=== PATIENT | male | born 1985 | race Two or more races ===

== ENCOUNTER 2016-10-04 16:57 | Emergency (ER) | payer OTHER ==
[2016-10-04 17:01] VITALS: BP 149/83
--- NOTE | 2016-10-04 17:31 | RAD ---
HISTORY: Hemoptysis COMPARISONS: December 13, 2014 VIEWS: 2: Frontal dual-energy and lateral views of the chest. FINDINGS: CARDIOMEDIASTINAL SILHOUETTE: The cardiomediastinal silhouette is normal. JOHN: The john are normal. PLEURA: The costophrenic angles are sharp. No pleural abnormalities are noted. LUNG PARENCHYMA: The lungs are clear. ABDOMEN: The upper abdomen is clear. There is no subphrenic gas. BONES AND SOFT TISSUES: No bone or soft tissue abnormalities are noted. OTHER: None. IMPRESSION: NO ACTIVE CARDIOPULMONARY DISEASE.
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
== END 2016-10-04 19:31 | disposition home or self-care (01) ==
LOC: ED 16:57
DX: J06.9 Acute upper respiratory infection, unspecified (principal); R05 Cough; J02.9 Acute pharyngitis, unspecified; Z87.891 Personal history of nicotine dependence
CPT/HCPCS: 71020; 87651; 99282

== ENCOUNTER 2016-11-26 12:41 | Emergency (ER) | payer OTHER ==
[2016-11-26] MEDS ORDERED: Ketorolac INJ* 60 MG/2 ML VIAL IM ONE (14:34)
--- NOTE | 2016-11-26 14:40 | UC ---
Lower Extremity/Ankle HPI - HPI Summary HPI Summary: 30 y/o male presents to the urgent care c/o B/L ankle pain since this morning. Pt reports his PCP is trying to r/o Rheumatoid arthritis. He has a Bone scan schedule this Friday11/29/[address] Rae. Pt states His pain is 7/10 and is sharp, specially with movement and radiates to both knees. Pt denies fever, SOB, chest pain, N/V/D, or urinary symptoms, numbness or tingling. Pt has not other complains. - History of Current Complaint Chief Complaint: UCLowerExtremity Stated Complaint: ANKLE PAIN Time Seen by Provider: 11/26/16 14:16 Hx Obtained From: Patient Onset/Duration: Gradual Onset, Lasting Hours, Still Present Severity Initially: Mild Severity Currently: Moderate Pain Intensity: 7 Pain Scale Used: 0-10 Numeric Aggravating Factor(s): Ambulation Alleviating Factor(s): Rest Able to Bear Weight: Yes - Risk Factors Gout Risk Factors: Negative DVT Risk Factors: Negative Septic Arthritis Risk Factor: Negative - Allergies/Home Medications Allergies/Adverse Reactions: Allergies Allergy/AdvReac Type Severity Reaction Status Date / Time Bee Venom Allergy Anaphylatic Verified 11/26/16 12:56 Shock Tomato Allergy Swelling Verified 11/26/16 12:56 Of Face,Lips,& Throat PMH/Surg Hx/FS Hx/Imm Hx Previously Healthy: Yes Respiratory History: Asthma Other History Of: Negative For: Anticoagulant Therapy - Surgical History Surgical History: Yes Surgery Procedure, Year, and Place: at age 4 had testicle surgery; there was excess fluid in one that made it bigger than the other. - Family History Known Family History: Positive: Diabetes, Other Negative: Cardiac Disease Family History: Grandmother hx of stomach CA, dicerticulitis - Social History Occupation: Employed Full-time Lives: With Family Alcohol Use: Occasionally Alcohol Amount: had two beers last night Substance Use Type: None Smoking Status (MU): Current Some Day Smoker Type: Cigarettes Amount Used/How Often: 1 ppd Length of Time of Smoking/Using Tobacco: QUIT 11 MONTHS AGO Have You Smoked in the Last Year: Yes Household Exposure Type: Cigarettes Review of Systems Constitutional: Negative Skin: Negative Eyes: Negative ENT: Negative Respiratory: Negative Cardiovascular: Negative Gastrointestinal: Negative Genitourinary: Negative Motor: Negative Neurovascular: Negative Musculoskeletal: Other: - B/L ankle pain Neurological: Negative Psychological: Negative All Other Systems Reviewed And Are Negative: Yes Physical Exam Triage Information Reviewed: Yes Appearance: Well-Appearing, No Pain Distress, Well-Nourished, Thin Vital Signs: Initial Vital Signs Temp 97.9 F 11/26/16 12:49 Pulse 85 11/26/16 12:49 Resp 18 11/26/16 12:49 BP 132/77 11/26/16 12:49 Pulse Ox 100 11/26/16 12:49 Vital Signs Reviewed: Yes Eye Exam: Normal Eyes: Positive: Conjunctiva Clear - PERRLA, EOMI, fundi grossly normal ENT Exam: Normal ENT: Positive: Normal ENT inspection, Hearing grossly normal, Pharynx normal, TMs normal Dental Exam: Normal Neck exam: Normal Neck: Positive: Supple, Nontender, No Lymphadenopathy Respiratory Exam: Normal Respiratory: Positive: Chest non-tender, Lungs clear, Normal breath sounds, No respiratory distress Cardiovascular Exam: Normal Cardiovascular: Positive: RRR, No Murmur, Pulses Normal, Brisk Capillary Refill Abdominal Exam: Normal Abdomen Description: Positive: Nontender, No Organomegaly, Soft. Negative: CVA Tenderness (R), CVA Tenderness (L) Bowel Sounds: Positive: Present Musculoskeletal Exam: Normal Musculoskeletal: Positive: Strength Intact, ROM Intact, No Edema, Other: - B/L ankle tenderness on both lateral aspect of malleoulus, no swelling or erythema observed. Decrease ROM due to pain. Positive sensation, pulses, capillary refill intact. Neurological Exam: Normal Lower Extremity Course/Dx - Course Course Of Treatment: 30 y/o male presents to the urgent care c/o B/L ankle pain since this morning. Pt reports his PCP is trying to r/o Rheumatoid arthritis. He has a Bone scan schedule this Friday11/29/[address] Rae. Pt states His pain is 7/10 and is sharp, specially with movement and radiates to both knees. Pt denies fever, SOB, chest pain, N/V/D, or urinary symptoms, numbness or tingling. PE abnormal findings:B/L ankle tenderness on both lateral aspect of malleoulus, no swelling or erythema observed. Decrease ROM due to pain. Positive sensation, pulses, capillary refill intact. Pt' PCP is trying to r/o RA. Pt with schedule appt this Friday w/ Assistant Financial Accountant with DR Rae. Pt given Toradol Im inj at the clinic by the nurse. Pt tolerated well medication and pain decreased. Pt Rx Naproxen PO f/u with Assistant Financial Accountant. Pt understood and agreed and left the clinic ambulating. Pt Rx - Differential Dx/Diagnosis Differential Diagnosis/HQI/PQRI: Arthritis, Bursitis, Gout, Septic Arthritis, Sprain, Tendonitis, Other - Rheumathoid arthritis Provider Diagnoses: 1- Bilateral ankle pain Discharge - Discharge Plan Condition: Stable Disposition: HOME Prescriptions: Naproxen TAB* [Naprosyn 250 mg TAB*] 500 mg PO Q8H PRN #20 tab PRN Reason: Pain Patient Education Materials: Rheumatoid Arthritis (ED) Forms: *Work Release Referrals: Krystian Carter MD [Primary Care Provider] - 1 Day Additional Instructions: Please take medications after meals as instructed to alleviate symptoms of pain. Please f/u with your PCP tomorrow if symptoms do not improve. F/u your schedule appt to r/o Rheumatoid arthritis w/ Dr Rae
[2016-11-26 14:55] VITALS: BP 124/76
== END 2016-11-26 15:09 | disposition home or self-care (01) ==
LOC: UCEAST 12:41
DX: M25.572 Pain in left ankle and joints of left foot (principal); M25.571 Pain in right ankle and joints of right foot; J45.909 Unspecified asthma, uncomplicated; Z91.030 Bee allergy status; Z72.0 Tobacco use
CPT/HCPCS: 96372; 99212; G0463; J1885

== ENCOUNTER 2017-05-30 10:08 | Emergency (ER) | payer MEDICAID, OTHER ==
[2017-05-30] MEDS ORDERED: Penicillin VK TAB* 250 MG PO ONE (12:37)
[2017-05-30] MEDS ORDERED: Ketorolac INJ* 30 MG/ML 1 ML VIAL IM ONE (12:37)
--- NOTE | 2017-05-30 12:40 | UC ---
Dental HPI - HPI Summary HPI Summary: tooth ache x 5 days worse x 2 days unable to sleep min relief with nsaid fever swelling right jaw no hx DM or heart murmur - History of Current Complaint Chief Complaint: UCDentalProblem Stated Complaint: DENTAL COMPLAINT Time Seen by Provider: 05/30/17 12:24 Hx Obtained From: Patient Onset/Duration: Gradual Onset, Lasting Days Severity: Severe Pain Intensity: 10 Pain Scale Used: 0-10 Numeric Aggravating Factor(s): Heat, Cold, Chewing Alleviating Factor(s): OTC Meds Related History: Previous Dental Care on Same Tooth, Swelling - Allergies/Home Medications Allergies/Adverse Reactions: Allergies Allergy/AdvReac Type Severity Reaction Status Date / Time Bee Venom Allergy Anaphylatic Verified 05/30/17 10:51 Shock Tomato Allergy Swelling Verified 05/30/17 10:51 Of Face,Lips,& Throat Home Medications: Home Medications Acetaminophen [Tylenol] 650 mg PO Q6HR PRN 05/30/17 [History Confirmed 05/30/17] Ibuprofen [Advil Migraine] 800 mg PO Q6HR PRN 05/30/17 [History Confirmed ] PMH/Surg Hx/FS Hx/Imm Hx Previously Healthy: Yes Other History Of: Negative For: Anticoagulant Therapy - Surgical History Surgical History: Yes Surgery Procedure, Year, and Place: at age 4 had testicle surgery; there was excess fluid in one that made it bigger than the other. - Family History Known Family History: Positive: Cardiac Disease, Hypertension, Diabetes, Other Family History: Grandmother hx of stomach CA, dicerticulitis - Social History Alcohol Use: Occasionally Alcohol Amount: had two beers last night Substance Use Type: None Smoking Status (MU): Current Some Day Smoker Type: Cigarettes Amount Used/How Often: 1 pack per week Length of Time of Smoking/Using Tobacco: QUIT 11 MONTHS AGO Have You Smoked in the Last Year: Yes Household Exposure Type: Cigarettes Review of Systems Constitutional: Fever Skin: Negative Eyes: Negative ENT: Negative Respiratory: Negative Cardiovascular: Negative Gastrointestinal: Negative Genitourinary: Negative Motor: Negative Neurovascular: Negative Musculoskeletal: Negative Neurological: Headache Psychological: Negative Is Patient Immunocompromised?: No All Other Systems Reviewed And Are Negative: Yes Physical Exam Triage Information Reviewed: Yes Appearance: Well-Appearing, No Pain Distress, Well-Nourished Vital Signs: Initial Vital Signs Temp 99.9 F 01/26/18 10:53 Pulse 93 05/30/17 10:53 Resp 18 05/30/17 10:53 BP 129/92 05/30/17 10:53 Pulse Ox 97 05/30/17 10:53 Vital Signs Reviewed: Yes Eyes: Positive: Conjunctiva Clear ENT: Positive: Hearing grossly normal Dental: Positive: Abscess @, Other: - abysmal dentition/many absent teeth Neck: Positive: Supple, Nontender, No Lymphadenopathy Respiratory: Positive: Lungs clear, Normal breath sounds, No respiratory distress, No accessory muscle use Cardiovascular: Positive: RRR, No Murmur Musculoskeletal: Positive: ROM Intact, No Edema Neurological: Positive: Alert Psychological Exam: Normal Skin Exam: Normal Dental Complaint Course/Dx - Differential Dx/Diagnosis Provider Diagnoses: dental abscess Discharge - Discharge Plan Condition: Stable Disposition: HOME Prescriptions: HYDROcodone/ACETAMIN 5-325 MG* [[place] 5-325 TAB*] 1 tab PO Q4H PRN #15 tab MDD 6 PRN Reason: Pain Ibuprofen TAB* [Motrin TAB*] 600 mg PO Q6H PRN #40 tab PRN Reason: Pain Penicillin VK 500 MG TAB(NF) [Penicillin VK 500 mg Tab] 500 mg PO QID #28 tab Patient Education Materials: Dental Abscess (ED) Forms: *Work Release Referrals: Krystian Carter MD [Primary Care Provider] - Additional Instructions: to ER for new or worsening symptoms recheck in 2-3 days if not better you need to get in to see a dentist to have your tooth addressed Images Head: 1 - tender/swollen Dental: 1 - abscess
[2017-05-30 13:16] VITALS: BP 148/75
== END 2017-05-30 13:10 | disposition home or self-care (01) ==
LOC: UCEAST 10:08
DX: K04.7 Periapical abscess without sinus (principal); Z91.030 Bee allergy status; Z87.891 Personal history of nicotine dependence
CPT/HCPCS: 96372; 99212; A9270-GY; G0463; J1885

== ENCOUNTER 2017-08-30 13:34 | Emergency (ER) | payer MEDICAID, OTHER ==
[2017-08-30 13:49] VITALS: BP 150/89
== END 2017-08-30 15:06 | disposition left against medical advice (07) ==
LOC: ED 13:34
DX: L91.8 Other hypertrophic disorders of the skin (principal); Z53.21 Procedure and treatment not carried out due to patient leaving prior to being seen by health care provider

== ENCOUNTER 2017-10-30 09:46 | Emergency (ER) | payer OTHER ==
--- OUTSIDE RECORDS SUMMARY | 2017-10-30 09:53 | XMS REPORT ---
:1985 External Reference #:[id number] Author Organization [employer] Address [address] [place] [address] [place] [address] Phone [phone] Care Team Providers Name Role Phone Krystian Carter MD Primary Care Physician Unavailable Payers Type Date Identification Numbers Payment Provider Subscriber Commercial Policy Number: [id number] Anthony Casey [employer] Group Number: [id number] [address] PayID: [id number] [place] [address] Problems Description No Information Family History Date Family Member(s) Problem(s) Comments General Diverticulitis Mother Diabetes Siblings 5 Social History Type Date Description Comments Marital Status Lives With Lives With Mother ETOH Use Rarely consumes alcohol Smoking Patient is a current smoker, smokes every day Recreational Drug Use Former Drug User Smoking Light tobacco smoker (10 or fewer cigarettes/day) Daily Caffeine Consumes on average 20oz of energy drinks per day Daily Caffeine Consumes on average 64oz of soda per day Exercise Type/Frequency Exercises sporadically Allergies, Adverse Reactions, Alerts Date Description Reaction Status Severity Comments 10/14/2017 NKDA active Medications Medication Date Status Form Strength Qnty SIG Indications Ordering Provider Tylenol 02/07/20 Active Tablets 325mg prn For Unknown 16 pain Flexeril 1020 Active Tablets 10mg 15tabs Three Unknown 16 Times Daily prn For Pain Motrin 20 Active Tablets 600mg 20tabs Q6H prn Unknown 16 For Pain Repack Vital Signs Date Vital Result Comment 10/14/2017 Height 65 inches 5'5" Weight 188.00 lb Heart Rate 90 /min BP Systolic Sitting 118 mmHg Lue regular cuff BP Diastolic Sitting 82 mmHg Lue regular cuff Respiratory Rate 16 /min O2 % BldC Oximetry 92 % BMI (Body Mass Index) 31.3 kg/m2 Neck Circumference in inches 15.5 Results Description No Information Procedures Description No Information Plan of Care 10/14/2017 - Linda Wallace, [id number] SnoringNew Orders:Sleep StudyFollow up:6 [id number] Other fatigue
[2017-10-30 09:57] VITALS: BP 137/89
--- NOTE | 2017-10-30 10:31 | UC ---
HPI Febrile Illness - HPI Summary HPI Summary: Patient is a 31-year-old male presenting to the with chief complaint of fevers, sweats, chills, sore throat, dysphagia, odynophagia, bilateral ear pain and productive cough. Denies any shortness of breath or chest pain. Symptoms have been present 3 days. He was seen at 5 start an told viral illness. Strep test negative at that time. He has been using Tylenol without relief. He has also endorsing some bilateral lower abdominal pain. He states he has not been eating or drinking due to sore throat. Denies any urinary symptoms, back pain. He endorses generalized fatigue and body aches as well. - History of Current Complaint Chief Complaint: UCGeneralIllness Time Seen by Provider: 10/30/17 10:06 Hx Obtained From: Patient Onset/Duration: Started Hours Ago Timing: Constant Initial Severity: Moderate Current Severity: Moderate Pain Intensity: 9 Pain Scale Used: 0-10 Numeric Alleviating Factors: Nothing Associated Signs and Symptoms: Cough, Diaphoresis, Joint Pain, Night Sweats, Sore Throat - Risk Factors Pseudomonas Risk Factors: Negative Serious Bacterial Infection Risk Factors: Negative - Allergy/Home Medications Allergies/Adverse Reactions: Allergies Allergy/AdvReac Type Severity Reaction Status Date / Time bee venom protein (honey bee) Allergy Severe Anaphylatic Verified 08/30/17 13:50 Shock tomato Allergy Severe Eyes Verified 08/30/17 13:50 Itchy/Swollen/Red/Watery PMH/Surg Hx/FS Hx/Imm Hx Previously Healthy: Yes Other History Of: Negative For: Anticoagulant Therapy - Surgical History Surgical History: Yes Surgery Procedure, Year, and Place: at age 4 had testicle surgery; there was excess fluid in one that made it bigger than the other. - Family History Known Family History: Positive: Cardiac Disease, Hypertension, Diabetes, Other Family History: Grandmother hx of stomach CA, dicerticulitis - Social History Occupation: Employed Full-time Lives: With Family Alcohol Use: Occasionally Alcohol Amount: had two beers last night Substance Use Type: None Smoking Status (MU): Current Some Day Smoker Type: Cigarettes Amount Used/How Often: 1 pack per week Length of Time of Smoking/Using Tobacco: QUIT 11 MONTHS AGO Have You Smoked in the Last Year: Yes Household Exposure Type: Cigarettes Review of Systems Constitutional: Fever, Chills, Fatigue Skin: Negative ENT: Sore Throat, Ear Ache, Nasal Discharge, Sinus Congestion, Sinus Pain/ Tenderness Respiratory: Cough Cardiovascular: Negative Gastrointestinal: Abdominal Pain - bilateral lower abd pain Motor: Negative Neurovascular: Negative Musculoskeletal: Arthralgia Neurological: Negative, Headache Is Patient Immunocompromised?: No All Other Systems Reviewed And Are Negative: Yes Physical Exam Triage Information Reviewed: Yes Appearance: Well-Nourished, Ill-Appearing Vital Signs: Initial Vital Signs Temp 98.8 F 10/30/17 09:49 Pulse 106 10/30/17 09:49 Resp 16 10/30/17 09:49 BP 137/89 10/30/17 09:49 Pulse Ox 100 10/30/17 09:49 Vital Signs Reviewed: Yes Eye Exam: Normal Eyes: Positive: Conjunctiva Clear ENT: Positive: Pharyngeal erythema, Nasal congestion, Nasal drainage, TMs normal , Tonsillar swelling, Hoarse voice, Sinus tenderness Neck exam: Normal Neck: Positive: Supple Respiratory Exam: Normal Respiratory: Positive: Chest non-tender, Lungs clear Cardiovascular Exam: Normal Cardiovascular: Positive: RRR Musculoskeletal Exam: Normal Musculoskeletal: Positive: Strength Intact Neurological Exam: Normal Psychological Exam: Normal Psychological: Positive: Normal Response To Family Skin Exam: Normal Course/Dx - Course Course Of Treatment: During the course treatment, the patient's evaluated for generalized body aches, fevers, sweats, chills. Pharyngeal erythema with left LAD and left enlarged tonsil without exudates. Uvula midline, but also enlarged. Bilateral ear pain, no evidence of infection. Bilateral sinus pressure and pain on light palpation. + cone of light. Lungs CTA, RRR. UA negative. Strep negative. Patient will be placed on Augmentin for a possible bacterial component of sinus infection + LAD + fevers, sweats, chills and pharyngeal erythema. Placed on prednisone at this time to decrease swelling and aid in swallowing. - Diagnoses Clinic Provider Diagnoses: Pharyngitis; Sinus infection Discharge - Sign-Out/Discharge Documenting (check all that apply): Discharge/Admit/Transfer - Discharge Plan Condition: Stable Disposition: HOME Prescriptions: Amoxicillin/Clavulanate TAB* [Augmentin TAB 875*] 875 mg PO BID #14 tab predniSONE TAB* [Deltasone TAB*] 50 mg PO DAILY #5 tab MDD 1 Patient Education Materials: Pharyngitis (ED) Forms: *Work Release Referrals: Krystian Carter MD [Primary Care Provider] - Additional Instructions: Cepacol lozenges (these are over the counter) Tylenol and ibuprofen - can use intermittently every 3 hours Drink PLENTY of water and use any Emergen-C over the counter packets to boost your immune system Prednisone once daily in the morning Humidifier in the home will help Garlic and lemon to your diet right now will help speed up your recovery time Augmentin twice daily x 7 days If you develop any worsening symptoms, go to the ED Chicken noodle soup, crackers, rice, toast for a diet for right now - Billing Disposition and Condition Condition: STABLE Disposition: Home
== END 2017-10-30 10:45 | disposition home or self-care (01) ==
LOC: UCEAST 09:46
DX: J02.9 Acute pharyngitis, unspecified (principal); J32.9 Chronic sinusitis, unspecified; R10.31 Right lower quadrant pain; R10.32 Left lower quadrant pain; H92.03 Otalgia, bilateral; F17.210 Nicotine dependence, cigarettes, uncomplicated; Z91.030 Bee allergy status
CPT/HCPCS: 81003; 87651; 99212; G0463